=== PATIENT | male | born 1955 | race Caucasian/White ===

== ENCOUNTER 2017-08-09 06:11 | Day surgery (SDC) | payer BC ==
[2017-08-07 19:12] VITALS: BMI 23.6
--- NOTE | 2017-08-08 16:27 | HP ---
- Patient Scheduled date of Surgery: 08/09/17 Scheduled Surgical Procedure: Phacoemulsification and cataract extraction with PCIOL Affected Eye: Right Chief Complaint (Indication for surgery): Decreased vision affecting ADLs, Decreased vision impairing reading - Ocular History Other Eye History: Other (none) Eye Medications: vigamox Previous Eye Surgery: none - Medical History Illnesses: COPD (smoker) Current Medications: Ambulatory Orders Albuterol Sulfate Inhaler - [Ventolin Hfa Inhaler -] 1 - 2 inh PO QID PRN Aspirin 81 mg PO DAILY 08/07/17 Varenicline Tartrate [Chantix] 1 mg PO DAILY 08/07/17 Allergies/Adverse Reactions: Allergies Allergy/AdvReac Type Severity Reaction Status Date / Time No Known Allergies Allergy Verified 08/07/17 19:04 Ocular Examination - Best Corrected Visual Acuity Distance: Right eye: LP Distance: Left eye: 20/50 - External/Slit Lamp Examination Abnormalities: normal - Intraocular Pressure Intraocular Pressure - Right eye: 14 Intraocular Pressure-Left eye: 14 - Lens Lens: 4+ NS pearly - Vitreous/Retina Vitreous/Retina: no view, retina flat on bscan, no masses. - Special Examination M - Right eye: no reflex M - Left eye: +0.25-1.25 x 085 K - Right eye: 40.5/41 x 85 K - Left eye: 40.25/40.75 x 180 AL - Right eye: 23.68 AL - Left eye: 24.09 IOL bag: +22.5 hoya 251 IOL sulcus: +22.0 hoya 231 IOL AC: +19.0 d MTA 4uo - Impression Impression: Other (Hypermature cataract right eye using trypan blue, possible conversion to ECCE) - Plan Plan: Phacoemulsification and cataract extraction - IOL Right eye Post-hospital care will be provided in office on: 08/10/17
--- NOTE | 2017-08-08 16:30 | HP ---
History & Physical Update - History History: No Change - Physical Physical: No Change - Assessment Assessment: No Change - Plan Plan: No Change
[~2017-08-09 06:11] MED LIST: ACETAMINOPHEN 325 MG TABLET (FP) PO PRN; TOBRA 0.3%/DEXAMETH 0.1% OPHTHALMIC SUSP 2.5 ML BTL OD ONE; TOBRAMYCIN/DEXAMETHASONE OPHTH. OINTMENT 1 TUBE OD ONE; acetaZOLAMIDE 250 MG TABLET PO ONE
[2017-08-09] MEDS ORDERED: CIPROFLOXACIN 0.3% EYE DROPS 5 ML BOTTLE ONE (06:20)
[2017-08-09] MEDS ORDERED: PHENYLEPHRINE 2.5% OPHTH SOLN 15 ML BOTTLE ONE (06:20)
[2017-08-09] MEDS ORDERED: TROPICAMIDE 1% OPHTH SOLN 15 ML BOTTLE ONE (06:20)
[2017-08-09] MEDS ORDERED: DICLOFENAC SODIUM 0.1% OPHTHALMIC 2.5ML BOTTLE ONE (06:20)
[2017-08-09] MEDS ORDERED: CIPROFLOXACIN HCL 0.3% OPHTH 2.5ML BOTTLE OP SCH (06:45)
[2017-08-09] MEDS ORDERED: TROPICAMIDE 1% OPHTH SOLN 15 ML BOTTLE OP SCH (06:45)
[2017-08-09] MEDS ORDERED: PHENYLEPHRINE 2.5% OPHTH SOLN 15 ML BOTTLE OP SCH (06:45)
[2017-08-09] MEDS ORDERED: DICLOFENAC SODIUM 0.1% OPHTHALMIC 2.5ML BOTTLE OP SCH (06:45)
[2017-08-09 06:58] VITALS: TEMP 98
[2017-08-09] MEDS ORDERED: MIDAZOLAM HCL 2 MG/2 ML SINGLE DOSE VIAL ONE ×3 (07:14→12:30)
[2017-08-09] MEDS ORDERED: TOBRA 0.3%/DEXAMETH 0.1% OPHTHALMIC SUSP 2.5 ML BTL ONE (12:05)
[2017-08-09] MEDS ORDERED: LIDOCAINE HCL/PF 1% SDV 5ML VIAL ONE (12:05)
[2017-08-09] MEDS ORDERED: POVIDONE-IODINE 5% OPHTHALMIC PREP 30 ML SOLUTION ONE (12:05)
[2017-08-09] MEDS ORDERED: BSS (NA/CA/MG/K) BALANCED SALT SOLUTION OPHTH SOLN 15 ML BOTTLE ONE (12:05)
[2017-08-09] MEDS ORDERED: EPINEPHrine/PF 1 MG/1 ML (1:1,000) AMPULE ONE (12:05)
[2017-08-09] MEDS ORDERED: BUPIVACAINE HCL/PF 0.75% 10 ML VIAL RB ONE (12:40)
[2017-08-09] MEDS ORDERED: LIDOCAINE HCL/PF 2% SDV 5ML VIAL INF ONE (12:40)
[2017-08-09] MEDS ORDERED: BSS (NA/CA/MG/K) BALANCED SALT SOLUTION OPHTH SOLN 15 ML BOTTLE OD ONE (12:47)
[2017-08-09] MEDS ORDERED: POVIDONE-IODINE 5% OPHTHALMIC PREP 30 ML SOLUTION OD ONE (12:47)
[2017-08-09] MEDS ORDERED: KETAMINE HCL 200 MG/20 ML VIAL ONE (12:49)
[2017-08-09] MEDS ORDERED: TETRACAINE 0.5% OPHTH SOLN 2 ML BOTTLE OD ONE (12:57)
[2017-08-09] MEDS ORDERED: CHONDROITIN SU A/HYALUR SOD 1 KIT IO ONE ×3 (12:59)
[2017-08-09] MEDS ORDERED: TRYPAN BLUE 0.5 ML DISP.SYRIN TP ONE (12:59)
[2017-08-09] MEDS ORDERED: EPINEPHrine/PF 1 MG/1 ML (1:1,000) AMPULE SQ ONE (13:18)
[2017-08-09] MEDS ORDERED: ACETYLCHOLINE 1:100 INTRA-OCUL 20 MG/2 ML KIT IO ONE (13:33)
[2017-08-09] MEDS ORDERED: TOBRAMYCIN/DEXAMETHASONE OPHTH. OINTMENT 1 TUBE ONE (13:47)
[2017-08-09] MEDS ORDERED: DEXAMETHASONE SOD PHOSPHATE/PF 10 MG/ML SDV ONE (14:16)
[2017-08-09] MEDS ORDERED: GENTAMICIN SO4 80 MG/2 ML VIAL ONE (14:16)
[2017-08-09] MEDS ORDERED: methylPREDNISolone NA SUCC 125 MG/2 ML VIAL ONE ×2 (14:17→14:18)
[2017-08-09] MEDS ORDERED: TOBRAMYCIN/DEXAMETHASONE OPHTH. OINTMENT 1 TUBE OD ONE (14:26)
[2017-08-09] MEDS ORDERED: acetaZOLAMIDE 250 MG TABLET PO ONE (14:30)
--- NOTE | 2017-08-09 14:33 | OP ---
Ophthalmology Operative Note Pre-Operative Diagnosis: Other (hypermature cataract right eye) Affected Eye: Right Operation: Phacoemulsification and cataract extraction with ACIOL (using trypan blue, anterior vitrectomy) Findings: PC tear , dropped nucleus, Post-Operative Diagnosis: Same as Pre-op Security Alarm Installer: None Anesthesia: Local, Retrobulbar Specimens Removed: none Estimated blood loss: <1 cc Operative Report Dictated: No
[2017-08-09] MEDS ORDERED: acetaZOLAMIDE 250 MG TABLET ONE (14:41)
[2017-08-09 15:12] VITALS: BP 121/77; PULSE 70
--- NOTE | 2017-08-10 11:49 | OP ---
DATE OF OPERATION: PREOPERATIVE DIAGNOSIS: Hypermature cataract, right eye. POSTOPERATIVE DIAGNOSIS: Hypermature cataract, right eye. PROCEDURE: Phacoemulsification and cataract extraction with insertion of anterior chamber intraocular lens using trypan blue dye and anterior vitrectomy. SURGEON: Martha Garzon MD PELLET PRESS OPERATOR: None. ANESTHESIA: Retrobulbar block. ANESTHESIOLOGIST: Dr. Kwame Ley OPERATIVE PROCEDURE: Following satisfactory intravenous sedation, the patient received local anesthesia using a 50/50 mixture of lidocaine 2% and Marcaine 0.75%. A Van Lint lid block was delivered to the right eye using 4 mL of the mixture in a retrobulbar injection using 4 mL of the mixture. The patient was then prepped and draped in the usual sterile fashion so as to expose only the right eye. Ophthalmic Betadine was instilled into the inferior fornix, and the lashes were taped out of the surgical field. An eyelid speculum was placed into the right eye. A paracentesis was made in superotemporal clear cornea at the limbus. An air bubble was injected into the anterior chamber, and Trypan blue was dripped on the anterior capsular edge. Viscoelastic material was then instilled into the anterior chamber via the paracentesis. A 2.4-mm keratome was used to create the main incision in temporal clear cornea at the limbus. The anterior capsule was nicked with the cystotome , and any cortex that was released was aspirated. More viscoelastic was placed, and a continuous curvilinear capsulorrhexis was attempted using a cystotome and Utrata forceps, but micro scissors were needed to complete it due to calcifications. The lens nucleus was gently rocked, and it was noted to be freely rotating. Therefore, the phacoemulsification tip was inserted via the main wound and used to sculpt 2 perpendicular grooves into the lens nucleus. The nucleus was cracked into 4 quadrants; however, the entire nucleus fell into the vitreous gel as the posterior capsule opened up. Therefore, an anterior vitrectomy was performed, and the pupil was constricted with Miochol. An air bubble was placed in the anterior chamber. The wound was enlarged with a 3.2 mm keratome and a Sheets' glide was placed across the pupil. The the anterior chamber intraocular lens was slid along the Sheets' glide into the anterior chamber. The Sheet's guide was then removed, and the wound was sutured using 10-0 nylon sutures and tested for any leakage or vitreous. It was watertight, and no vitreous was present. The paracentesis was then enlarged using the Microsharp, and Colibri forceps were used to create a small paracentesis superotemporally. The paracentesis was then sutured with one 10-0 nylon suture. BSS was inserted. The wound was tested for leakage. It was found to be watertight. Injections of dexamethasone and gentamicin were given. It was 20 mg of gentamicin in 0.5 cc, and 2 mg of dexamethasone in 0.5 mL as a subconjunctival injection. Tobradex ointment was placed in the eye. The speculum was removed from the eye. A pressure patch and shield were placed over the eye , and the patient was transferred to the recovery room and was told to follow up with the retina specialist in 1 day, Dr. Nilson Muñoz for removal of retained lens. Mekhi [id number] MTDD
== END 2017-08-09 15:16 | disposition home or self-care (01) ==
LOC: JASU-SURG 06:11
PROVIDERS: ATTEND Ophthalmology
PROC: 08943ZZ Drainage of Right Vitreous, Percutaneous Approach (ICD-10-PCS; 2017-08-09)
PROC: 08RJ3JZ Replacement of Right Lens with Synthetic Substitute, Percutaneous Approach (ICD-10-PCS; principal; 2017-08-09 07:30)
DX: H25.21 Age-related cataract, morgagnian type, right eye (principal)

== ENCOUNTER 2017-12-27 06:07 | Day surgery (SDC) | payer BC ==
--- NOTE | 2017-12-26 12:22 | HP ---
- Patient Scheduled date of Surgery: 12/27/17 Scheduled Surgical Procedure: Phacoemulsification and cataract extraction with PCIOL Affected Eye: Left Chief Complaint (Indication for surgery): Decreased vision affecting ADLs - Ocular History Other Eye History: Other (none) Eye Medications: vigamox Previous Eye Surgery: s/p ce/ACIOL for mature cataract dropped nucleus s/p vitrectomy and lensect - Medical History Illnesses: COPD (smoker) Current Medications: Ambulatory Orders Albuterol Sulfate Inhaler - [Ventolin Hfa Inhaler -] 1 - 2 inh PO QID PRN Aspirin 81 mg PO DAILY 08/07/17 Varenicline Tartrate [Chantix] 1 mg PO DAILY 08/07/17 Allergies/Adverse Reactions: Allergies Allergy/AdvReac Type Severity Reaction Status Date / Time No Known Allergies Allergy Verified 08/09/17 06:48 Ocular Examination - Best Corrected Visual Acuity Distance: Right eye: 20/30 Distance: Left eye: 20/50 - External/Slit Lamp Examination Abnormalities: none - Intraocular Pressure Intraocular Pressure - Right eye: 6 Intraocular Pressure-Left eye: 8 - Lens Lens: 2+ NS 2+ psc superocentral - Vitreous/Retina Vitreous/Retina: c:D 0.3 m/v/p WNL - Special Examination M - Right eye: plano -0.75 x 085 M - Left eye: -0.25 -1.25 x 090 K - Right eye: 39.25/40.25 x 180 K - Left eye: 40/40.50 x 175 AL - Right eye: 23.68 AL - Left eye: 24.09 IOL bag: +22.5 d AUooto IOL sulcus: +22.0d [id number] IOL AC: +19.0d MTA 4uo - Impression Impression: Cataract Left Eye - Plan Plan: Phacoemulsification and cataract extraction - IOL Left eye Post-hospital care will be provided in office on: 12/28/17
[2017-12-26 12:53] VITALS: BMI 22.4
[~2017-12-27 06:07] MED LIST changes: +KETOROLAC TROMETHAMINE 0.5% 5 ML BOTTLE OPTHALMIC OP SCH; -TOBRA 0.3%/DEXAMETH 0.1% OPHTHALMIC SUSP 2.5 ML BTL OD ONE; -TOBRAMYCIN/DEXAMETHASONE OPHTH. OINTMENT 1 TUBE OD ONE; +TOBRAMYCIN/DEXAMETHASONE OPHTH. OINTMENT 1 TUBE TP ONE; -acetaZOLAMIDE 250 MG TABLET PO ONE
[2017-12-27] MEDS ORDERED: FLURBIPROFEN 0.03% OPHTH SOLN 2.5 ML BOTTLE ONE (06:22)
[2017-12-27] MEDS ORDERED: TROPICAMIDE 1% OPHTH SOLN 15 ML BOTTLE ONE (06:22)
[2017-12-27] MEDS ORDERED: CIPROFLOXACIN 0.3% EYE DROPS 5 ML BOTTLE ONE (06:22)
[2017-12-27] MEDS ORDERED: PHENYLEPHRINE 2.5% OPHTH SOLN 15 ML BOTTLE ONE (06:22)
[2017-12-27 06:37] VITALS: TEMP 98
[2017-12-27] MEDS ORDERED: FLURBIPROFEN 0.03% OPHTH SOLN 2.5 ML BOTTLE OS ONE ×3 (06:45→07:00)
[2017-12-27] MEDS ORDERED: PHENYLEPHRINE 2.5% OPHTH SOLN 15 ML BOTTLE OS ONE ×3 (06:45→07:00)
[2017-12-27] MEDS ORDERED: CIPROFLOXACIN HCL 0.3% OPHTH 2.5ML BOTTLE OS ONE ×3 (06:45→07:00)
[2017-12-27] MEDS ORDERED: TROPICAMIDE 1% OPHTH SOLN 15 ML BOTTLE OP SCH (06:45)
[2017-12-27] MEDS ORDERED: TROPICAMIDE 1% OPHTH SOLN 15 ML BOTTLE OS ONE ×3 (06:45→07:00)
[2017-12-27] MEDS ORDERED: CHONDROITIN SU A/HYALUR SOD 1 KIT ONE (07:11)
[2017-12-27] MEDS ORDERED: MIDAZOLAM HCL 2 MG/2 ML SINGLE DOSE VIAL ONE (07:17)
[2017-12-27] MEDS ORDERED: PROPOFOL 20 ML ONE ×2 (07:18)
[2017-12-27] MEDS ORDERED: POVIDONE-IODINE 5% OPHTHALMIC PREP 30 ML SOLUTION ONE (07:19)
[2017-12-27] MEDS ORDERED: TOBRAMYCIN/DEXAMETHASONE OPHTH. OINTMENT 1 TUBE ONE (07:21)
--- NOTE | 2017-12-27 07:21 | HP ---
History & Physical Update - History History: No Change - Physical Physical: No Change - Assessment Assessment: No Change - Plan Plan: No Change (Reviewed H and P from Dr. Quinteros from 12/17/17 no changes)
[2017-12-27] MEDS ORDERED: LIDOCAINE HCL/PF 1% SDV 5ML VIAL ONE (07:22)
[2017-12-27] MEDS ORDERED: LIDOCAINE HCL/PF 2% SDV 5ML VIAL ONE (07:22)
[2017-12-27] MEDS ORDERED: EPINEPHrine/PF 1 MG/1 ML (1:1,000) AMPULE ONE (07:22)
[2017-12-27] MEDS ORDERED: BUPIVACAINE HCL/PF 0.75% 10 ML VIAL ONE (07:22)
[2017-12-27] MEDS ORDERED: BSS (NA/CA/MG/K) BALANCED SALT SOLUTION OPHTH SOLN 15 ML BOTTLE ONE (07:23)
[2017-12-27] MEDS ORDERED: BUPIVACAINE HCL/PF 0.75% 10 ML VIAL RB ONE (07:46)
[2017-12-27] MEDS ORDERED: LIDOCAINE HCL/PF 2% SDV 5ML VIAL INF ONE (07:46)
[2017-12-27] MEDS ORDERED: POVIDONE-IODINE 5% OPHTHALMIC PREP 30 ML SOLUTION OS ONE (07:48)
[2017-12-27] MEDS ORDERED: CHONDROITIN SU A/HYALUR SOD 1 KIT IO ONE (07:58)
[2017-12-27] MEDS ORDERED: TETRACAINE 0.5% OPHTH SOLN 2 ML BOTTLE ONE (07:58)
[2017-12-27] MEDS ORDERED: BSS (NA/CA/MG/K) BALANCED SALT SOLUTION OPHTH SOLN 15 ML BOTTLE OS ONE (07:58)
[2017-12-27] MEDS ORDERED: TETRACAINE 0.5% OPHTH SOLN 2 ML BOTTLE OS ONE (07:59)
[2017-12-27] MEDS ORDERED: EPINEPHrine/PF 1 MG/1 ML (1:1,000) AMPULE SQ ONE (08:02)
[2017-12-27] MEDS ORDERED: TOBRAMYCIN/DEXAMETHASONE OPHTH. OINTMENT 1 TUBE TP ONE (08:19)
--- NOTE | 2017-12-27 08:29 | OP ---
Ophthalmology Operative Note Pre-Operative Diagnosis: Cataract Affected Eye: Left Operation: Phacoemulsification and cataract extraction with PCIOL Findings: nuclear cataract left eye Post-Operative Diagnosis: Same as Pre-op Electrician Outside: None Anesthesiologist: Kwame Ley Anesthesia: Local, Retrobulbar Specimens Removed: none Estimated blood loss: < 1 cc Drains & Tubes with Location: none Operative Report Dictated: Yes
[2017-12-27] MEDS ORDERED: ONDANSETRON 4 MG/2 ML VIAL IVPUSH PRN (08:39)
[2017-12-27] MEDS ORDERED: LACTATED RINGERS SOLUTION 1,000 ML IV SCH (08:45)
[2017-12-27 08:56] VITALS: BP 127/76; PULSE 70
--- NOTE | 2017-12-27 10:58 | OP ---
DATE OF OPERATION: 12/27/2017 PREOPERATIVE DIAGNOSIS: Cataract, left eye. POSTOPERATIVE DIAGNOSIS: Cataract, left eye. PROCEDURE: Phacoemulsification and cataract extraction with insertion of posterior chamber intraocular lens, left eye. SURGEON: Martha Garzon MD CATHODE RAY TUBE SALVAGE PROCESSOR: None. ANESTHESIA: Retrobulbar block. ANESTHESIOLOGIST: Kwame Ley CRNA OPERATIVE PROCEDURE: Following satisfactory intravenous sedation, the patient received local anesthesia using a 50/50 mixture of lidocaine 2% and Marcaine 0.75%. A van Lint lid block was delivered to the left eye using 4 mL of the mixture and a retrobulbar injection using 4 mL of the mixture. The patient was then prepped and draped in the usual sterile fashion so as to expose only the left eye. Ophthalmic Betadine was instilled into the inferior fornix, and the lashes were taped out of the surgical field. An eyelid speculum was placed into the left eye. A paracentesis was made in inferior clear cornea at the limbus. Viscoelastic material was instilled into the anterior chamber via the paracentesis. A 2.4-mm keratome was then used to create the main incision in temporal clear cornea at the limbus. A continuous curvilinear capsulorrhexis was performed using a cystotome and Utrata forceps. Hydrodissection of the lens cortex was performed using BSS on a cannula until the nucleus was noted to be freely rotating. The phacoemulsification tip was inserted via the main wound and used to sculpt 2 perpendicular grooves into the lens nucleus. The nucleus was cracked into 4 quadrants. Each quadrant was lifted out of the capsule into the iris plane and individually phacoemulsified. The remaining cortical material was then aspirated using the irrigation and aspiration port. The capsular bag was inflated using Provisc, and a preloaded AcrySof lens power +22.5, model [id number] was injected into the capsular bag and centered using a Sinskey hook. The residual viscoelastic material was removed from the anterior chamber using irrigation and aspiration. The wound edges were hydrated using BSS. The wound was tested for leakage. It was found to be watertight. Therefore, TobraDex ointment was placed in the eye, and the speculum was removed from the eye. A sterile dressing and shield were placed over the eye, and the patient was transferred to the recovery room in stable condition, told to follow up in one day. MARTHA GARZON M.D. AROLDO/[id number]
[2017-12-27] MEDS ORDERED: CIPROFLOXACIN HCL 0.3% OPHTH 2.5ML BOTTLE OP SCH (20:30)
[2017-12-27] MEDS ORDERED: PHENYLEPHRINE 2.5% OPHTH SOLN 15 ML BOTTLE OP SCH (20:30)
== END 2017-12-27 09:30 | disposition home or self-care (01) ==
LOC: JASU-SURG 06:07
PROVIDERS: ATTEND Ophthalmology
PROC: 08RK3JZ Replacement of Left Lens with Synthetic Substitute, Percutaneous Approach (ICD-10-PCS; principal; 2017-12-27 07:30)
DX: H26.9 Unspecified cataract (principal)